=== PATIENT | male | born 1995 | race Caucasian/White ===

== ENCOUNTER 2025-05-08 17:42 | Inpatient (IN) | payer SELFPAY ==
--- NOTE | 2025-05-08 17:44 | ECG_ITS ---
[facility] Date: 2025-05-08 Pat Name: Kenneth Gtz Department: Room: Gender: Male Recruitment Specialist: : [id number] Requested By: Pauly Myers Order Number: [id number] Paul MD: ANDRES SEXTON Measurements Intervals [place] Rate: 114 P: 64 MI: 135 QRS: 79 QRSD: 88 T: 64 QT: 300 QTc: 414 Interpretive Statements SINUS TACHYCARDIA ABNORMAL RHYTHM ECG No previous ECG available for comparison Electronically Signed On 05-11-2025 23:13:59 CDT by ANDRES SEXTON [email or web address]
--- NOTE | 2025-05-08 17:44 | XRR_ITS ---
PROCEDURE INFORMATION: Exam: XR Right Knee Exam date and time: 05/08/2025 6:05 PM Age: 29 years old Clinical indication: Injury or trauma; Fall; Blunt trauma; Injury date: 05/08/2025; Injury details: PT stated he fell off skateboard; Patient states fell of his skateboard and is complaining of right knee pain. TECHNIQUE: Imaging protocol: Radiologic exam of the right knee. Views: 3 views. COMPARISON: No relevant prior studies available. FINDINGS: Bones/joints: Normal. Soft tissues: Normal. XR/XR knee RT 3V* [id number] IMPRESSION: No acute findings.
--- NOTE | 2025-05-08 17:45 | ED.C_ITS ---
HPI - Psych 2 General: Chief Complaint: Psychiatric Symptoms Stated Complaint: 96 - leg pain Time Seen by Provider: 05/08/25 17:44 History of Present Illness: 29-year-old man who presents emergency r oom with police with a 96-hour hold for suicidal ideation. Apparently fell off his skateboard and then he jumped in front of a car. He is crying when he arrives and complained of pain in his knee. Please says that when they got there and started to question him he tried to jump in front of a car. They said he said he was going to shoot himself Review of Systems 2 Narrative: Constitutional symptoms: Negative except as documented in HPI. Skin symptoms: Negative except as documented in HPI. Eye symptoms: Negative except as documented in HPI. ENMT symptoms: Negative except as documented in HPI. Respiratory symptoms: Negative except as documented in HPI. Cardiovascular symptoms: Negative except as documented in HPI. Gastrointestinal symptoms: Negative except as documented in HPI. Genitourinary symptoms: Negative except as documented in HPI. Musculoskeletal symptoms: Negative except as documented in HPI. Neurologic symptoms: Negative except as documented in HPI. Psychiatric symptoms: Negative except as documented in HPI. Endocrine symptoms: Negative except as documented in HPI. Physical Exam 2 Narrative: EXAM NARRATIVE: General: Alert, patient is somewhat agitated and crying. Skin: Warm, dry. Head: Normocephalic, atraumatic. Neck: Supple, trachea midline. Eye: Extraocular movements are intact. Ears, nose, mouth and throat: mucosa moist. Cardiovascular: Regular, Normal peripheral perfusion. Respiratory: Lungs are clear to auscultation, respirations are non-labored, breath sounds are equal, Symmetrical chest wall expansion. Gastrointestinal: Soft, Nontender, Non distended Musculoskeletal: Normal ROM, no deformity. Neurological: Alert and oriented, No focal neurological deficit observed. Psychiatric: Cooperative, patient is crying and complaining of knee pain. Course 2 Vital Signs: Vital signs: Vital Signs Temperature 97.9 F 05/08/25 18:00 Pulse Rate 79 05/08/25 18:00 Respiratory Rate 18 05/08/25 18:00 Blood Pressure 132/79 05/08/25 18:00 Pulse Oximetry 96 05/08/25 18:00 Oxygen Delivery Me thod Room Air 05/08/25 18:00 MDM - Psych Medical Decision Making Differential diagnosis: Patient with reported depression and suicidal ideation. concerns for infection, alcohol intoxication, cardiac issues or other medical problems prior to psychiatric admission. Workup: labwork, ekg ordered to evaluate the pathologies and to clear the patient medically prior to psychiatric admission EKG: Time 1840. Rate 114. Sinus tachycardia, No ST-T changes, no ectopy, normal PA & QRS intervals, This was reviewed and interpreted by myself the ER physician at 1845. X-ray of the knee: No fractures or dislocations. This was reviewed and interpreted by myself the emergency room physician. I also reviewed the radiology report. Lab Review: Laboratory results were reviewed and interpreted by myself the emergency room physician. - Medically cleared. - EKG shows no ischemic changes. - Blood alcohol level is negative, -Tylenol and salicylate levels are negative. - Urinalysis and drug screen are pending - No anemia. - BUN and creatinine are within normal limits. Consultation: I spoke with Dr. Israel who is on-call for psychiatry who agrees to admission pending beds open up. Admission orders are being placed for an ER hold Assessment and plan: Suicidal ideation Knee pain ?Trazodone and [place] -Admission to neuropsychiatric unit for continued evaluation and treatment. - All lab work was reviewed and interpreted personally by myself, the ER physician - Evaluation and treatment of this problem were appropriate in the emergency setting Lab Data 05/08/25 18:03 05/08/25 18:03 Radiology Impressions Knee X-Ray 05/08/25 17:44 IMPRESSION: No acute findings. ADDENDUM: 05/08/25 1846 No definite acute fracture, subluxation, dislocation. Laboratory Results WBC 19.30 10^3/uL (3.29-11.43) H 05/08/25 18:03 RBC 4.37 10^6/uL (3.85-5.65) 05/08/25 18:03 Hgb 13.70 g/dL (11.27-16.99) 05/08/25 18:03 Hct 40.1 % (37-53) 05/08/25 18:03 MCV 91.8 fl (82-101) 05/08/25 18:03 MCH 31.4 pg (27-33) 05/08/25 18:03 MCHC 34.2 g/dL (30-55) 05/08/25 18:03 RDW 13.0 % (12.1-15.1) 05/08/25 18:03 Plt Count 303 10^3/cmm (157-399) 05/08/25 18:03 MPV 8.9 fL (7.4-10.4) 05/08/25 18:03 Neut % (Auto) 81.0 % 05/08/25 18:03 Lymph % (Auto) 10.4 % 05/08/25 18:03 [place] % (Auto) 6.3 % 05/08/25 18:03 Eos % (Auto) 1.1 % 05/08/25 18:03 Baso % (Auto) 0.5 % 05/08/25 18:03 Neut # (Auto) 15.65 10^3/uL (1.8-7.7) H 05/08/25 18:03 Lymph # (Auto) 2.0 10^3/uL (0.8-4.8) 05/08/25 18:03 [place] # (Auto) 1.2 10^3/uL (0.2-0.9) H 05/08/25 18:03 Eos # (Auto) 0.2 10^3/uL (0.0-0.8) 05/08/25 18:03 Baso # (Auto) 0.1 10^3/uL (0.0-0.1) 05/08/25 18:03 Nucleated RBC % (auto) 0 % 05/08/25 18:03 Nucleated RBCs # 0.0 /100WBC 05/08/25 18:03 Sodium 140 mmol/L (136-145) 05/08/25 18:03 Potassium 4.5 mmol/L (3.5-5.1) 05/08/25 18:03 Chloride 102 mmol/L (98-107) 05/08/25 18:03 Carbon Dioxide 26 mmol/L (22-29) 05/08/25 18:03 Anion Gap 16.5 (5-19) 05/08/25 18:03 BUN 16 mg/dL (6-20) 05/08/25 18:03 Creatinine 0.9 mg/dL (0.7-1.2) 05/08/25 18:03 GFR Calculation 99.8 mL/min (90-130) 05/08/25 18:03 Glucose 119 mg/dL (65-115) H 05/08/25 18:03 Calculated Osmolality 292 mOsm/kg (285-295) 05/08/25 18:03 Calcium 9.3 mg/dL (8.5-10.5) 05/08/25 18:03 Total Bilirubin 0.2 mg/dL (0.15-1.2) 05/08/25 18:03 AST 23 U/L (0-40) 05/08/25 18:03 ALT 25 U/L (0-41) 05/08/25 18:03 Alkaline Phosphatase 80 U/L (40-130) 05/08/25 18:03 Total Protein 7.3 g/dL (6.6-8.7) 05/08/25 18:03 Albumin 4.4 g/dL (3.5-5.2) 05/08/25 18:03 Globulin 2.9 g/dL (1.3-4.6) 05/08/25 18:03 TSH 1.90 uIU/mL (0.27-4.20) 05/08/25 18:03 Salicylates < 0.3 mg/dL (3-10) L 05/08/25 18:03 Acetaminophen < 5.0 ug/mL (10-30) L 05/08/25 18:03 Ethyl Alcohol < 10 mg/dL (0-10) 05/08/25 18:03 All radiology interpretation(s) finalized by discharge Discharge Plan Discharge Patient Disposition: Admitted As Inpatient Clinical Impression: Depression, Suicidal ideation, Knee injury Condition: Stable Coding 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
[2025-05-08 17:50] VITALS: BMI 23.6
--- NOTE | 2025-05-08 17:59 | PC.NURSE ---
Pt was read his 96 hour hold rights at this time. Security present.
[2025-05-08 18:00] VITALS: BP 132/79; PULSE 79; RESP 18; TEMP 36.6; O2SAT 96
[2025-05-08 18:17] LABS: Hematocrit 40.1 % (37-53); Hemoglobin 13.70 g/dL (11.27-16.99); Mean Corpuscular HGB Conc 34.2 g/dL (30-55); Mean Corpuscular Hemoglobin 31.4 pg (27-33); Mean Corpuscular Volume 91.8 fl (82-101); Nucleated Red Blood Cells % 0 %; Platelet Count 303 10^3/cmm (157-399); Red Blood Count 4.37 10^6/uL (3.85-5.65); White Blood Count 19.30 10^3/uL (3.29-11.43)
[2025-05-08] MEDS: HYDROcodone-acetaminophen 10-325 mg Tablet 1 TAB PO (18:42)
[2025-05-08 19:06] LABS: Alanine Aminotransferase 25 U/L (0-41); Albumin Level 4.4 g/dL (3.5-5.2); Alkaline Phosphatase 80 U/L (40-130); Anion Gap 16.5 (5-19); Aspartate Amino Transferase 23 U/L (0-40); Blood Urea Nitrogen 16 mg/dL (6-20); Calcium 9.3 mg/dL (8.5-10.5); Carbon Dioxide 26 mmol/L (22-29); Chloride 102 mmol/L (98-107); Creatinine Clr Calc Pharmacy 122.3912; Globulin 2.9 g/dL (1.3-4.6); Glucose 119 mg/dL (65-115); Osmolality Calculated 292 mOsm/kg (285-295); Potassium 4.5 mmol/L (3.5-5.1); Sodium 140 mmol/L (136-145); Thyroid Stimulating Hormone 1.90 uIU/mL (0.27-4.20); Total Protein 7.3 g/dL (6.6-8.7)
[2025-05-08 19:07] LABS: Acetaminophen < 5.0 ug/mL (10-30); Alcohol Level < 10 mg/dL (0-10); Salicylate < 0.3 mg/dL (3-10)
--- NOTE | 2025-05-08 19:33 | XRR_ITS ---
PROCEDURE INFORMATION: Exam: XR Chest Exam date and time: 05/08/2025 8:09 PM Age: 29 years old Clinical indication: Other: Mental health eval for admit TECHNIQUE: Imaging protocol: Radiologic exam of the chest. Views: 1 view. COMPARISON: No relevant prior studies available. FINDINGS: Lungs: Unremarkable. No consolidation. Pleural spaces: Unremarkable. No pleural effusion. No pneumothorax. Heart/Mediastinum: Unremarkable. No cardiomegaly. Bones/joints: Unremarkable. XR/XR chest 1V portable [id number] IMPRESSION: No acute findings.
--- NOTE | 2025-05-08 20:10 | PC.NURSE ---
Pt. refused trazadone ordered by doctor because he wanted to take the medications in his bag. Pt. later said he would take them if he reads the package first.
[2025-05-08 20:34] LABS: Add Urine Microscopic? NO
[2025-05-08 20:37] LABS: Glucose Urine UA Negative (Normal); Nitrate Urine Negative (Negative); Specific Gravity, Urine 1.011 (1.005-1.030)
[2025-05-08 20:44] LABS: PCP Screen Urine Negative (Negative)
[2025-05-08 20:49] LABS: Respiratory Syncytial Virus Ce NEGATIVE (Negative); SARS-CoV-2 PCR NEGATIVE (Negative)
[2025-05-08 20:50] LABS: Charge for UA Resulting for Rev
[2025-05-09 00:16] VITALS: RESP 16
[2025-05-09 08:53] VITALS: BP 124/69; PULSE 109; O2SAT 97
[2025-05-09 13:40] VITALS: BP 126/70; PULSE 91; RESP 16; O2SAT 99
[2025-05-09 13:54] VITALS: BP 121/76; PULSE 111; RESP 20; TEMP 37; O2SAT 95
[2025-05-09 14:00] VITALS: BP 121/76; PULSE 111; RESP 20; TEMP 37; O2SAT 95
[2025-05-09] MEDS: neomycin-poly-bacitracin oint 28 gm 1 APPLIC TOPICAL (17:06)
[2025-05-09 19:58] VITALS: BP 107/64; PULSE 90; RESP 16; O2SAT 98
[2025-05-09] MEDS: benzocaine 20% 7 gm 1 APPLIC MUCOUS MEM (21:33)
[2025-05-10 05:38] VITALS: BP 116/69; PULSE 103; RESP 18; TEMP 37; O2SAT 99
--- NOTE | 2025-05-10 07:19 | P.NPUHP_ITS ---
Providers/Chief Complaint 2 Admitting Physician: Enrico Israel MD Chief Complaint: 96 - leg pain HPI NPU History of Present Illness Kenneth Gtz is a 29 year old male who presented to the emergency department with the following report: Chief Complaint: Psychiatric Symptoms Stated Complaint: 96 - leg pain Time Seen by Provider: 05/08/25 17:44 History of Present Illness: 29-year-old man who presents emergency room with police with a 96-hour hold for suicidal ideation. Apparently fell off his skateboard and then he jumped in front of a car. He is crying when he arrives and complained of pain in his knee. Please says that when they got there and started to question him he tried to jump in front of a car. They said he said he was going to shoot himself. He was admitted to the neuropsychiatric unit for definitive treatment of those issues. He is unknown to [facility] psychiatry through inpatient or outpatient services. He presented to the hospital with a negative BAL and a UDS positive for opiates. Patient is here on a 96-hour hold secondary to the police saying that he tried to jump in front of the vehicle and was endorsing being suicidal. He denies both those accusations and reports that they are lying. He reports they are from [facility] and that is what they do. He attempted to get this typewriter repairer to discharge him today. We discussed that if he maintains his current behavior and attitude that he would get out of here sooner than his 96- hour hold but that we need to identify the veracity of the claims against him and do our due diligence and not just take his word and discharge him. He is endorsing a history of seizures and reported that they are stress-induced and that is how he got on the Trileptal. He endorses wanting to leave as soon as possible and we discussed the risks, benefits and alternatives of the likely discharge on Monday once they have collateral information are able to get him an appointment. He endorses medications were effective and does not feel there is a need to change them right now. Meds NPU Home Medications ?Medication ?Instructions ?Recorded ?Confirmed ?Last Taken ?Type acyclovir 400 mg tablet 400 mg PO TID 05/09/2505/09 Unknown History oxcarbazepine 300 mg tablet 300 mg PO BID 05/09/2505/24 Unknown History propranolol 20 mg tablet See Rx Instructions .Route . COMPLEX 05/09/25 05/09/25 Unknown History trazodone 150 mg tablet 150 mg PO BEDTIME 05/09/25 1 Unknown History Allergies Allergy/AdvReac Type Severity Reaction Status Date / Time codeine Allergy Unknown Verified 05/08/25 20:09 Mental Status Exam 2 MSE Comments: This is a well-nourished well-developed white male in hospital scrubs with limited grooming but adequate eye contact. No abnormal movements except for psychomotor agitation, significant gait instability he reports from a accident on a scooter or longboard. Cooperative with exam in no acute distress. Speech was increased rate but normal volume. Mood described as fine, I do not need to be here, affect mostly euthymic. Thought process organized. Thought content: Patient denied suicidal or homicidal ideation, there were no delusions reported or noted, he denied any auditory or visual hallucinations. Attention and concentration appeared intact and memory appeared reliable but no more formally tested. He is alert and oriented x 3. Insight and judgment limited impulse control limited. Vitals/I&O/Wt Last Vital Signs Temp 98.6 F 05/10/25 05:38 Pulse 103 H 05/10/25 05:38 Resp 18 05/10/25 05:38 BP 116/69 05/10/25 05:38 Pulse Ox 99 05/10/25 05:38 O2 Del Method Room Air 05/10/25 05:38 Weight last 48 hrs Weight 72.575 kg Data NPU 05/08/25 18:03 05/08/25 18:03 A&P Assessment and plan 1. Depression: 2. Suicidal ideation: Plan: This is a 29-year-old white male with a long history of addiction and mental health issues, uknown to [facility] psychiatry who presents with a UDS positive for opiates but denying any current issues. 1. Continue current medication. Explore possible changes. 2. Continue every 15 minute checks for safety. 3. Encourage individual, group and milieu therapies. 4. Encourage sober living treatment after discharge at the highest level of care to which he is willing to commit. 5. Obtain collateral information. 6. Observe against the backdrop of 96-hour hold. PDMP PDMP Reviewed: Not Reviewed Involuntary Hold Information 2 Hold Status: Legal Status: 96 Hour Hold Date/Time Hold Expires: 05/14/25 @ 17:45 Attestations NPU 2 Medical Necessity Statement*: Inpatient hospitalization is medically necessary and the clinically appropriate intervention at this time. We will monitor medications and make changes as indicated. Patient will be in the hospital for over two midnights. Likely length of stay 7-10 days. Coding Level of Care Code Acute Code for [facility] Fwd Diagnoses Depression F32.A Suicidal ideation R45.851
[2025-05-10] MEDS: neomycin-poly-bacitracin oint 28 gm 1 APPLIC TOPICAL (10:22)
[2025-05-10 13:04] VITALS: BP 132/68; PULSE 104; RESP 16; TEMP 37.7; O2SAT 97
[2025-05-10] MEDS: benzocaine 20% 7 gm 1 APPLIC MUCOUS MEM (13:14)
[2025-05-10 19:39] VITALS: BP 126/70; PULSE 120; RESP 20; TEMP 37.9; O2SAT 90; BMI 25.7
[2025-05-11 06:00] VITALS: BP 123/66; PULSE 92; RESP 18; O2SAT 97
[2025-05-11 14:00] VITALS: BP 125/82; PULSE 110; RESP 16; TEMP 36.7; O2SAT 99
--- NOTE | 2025-05-11 14:42 | W.PM.NPUPNS ---
Subjective NPU Subjective: Patient presented today reporting that things are going well. He reports he is adjusted and excepted that he is here and denies any current problems. He has medication as prescribed and denied any problems or any need for any changes. We discussed work with social work team tomorrow to explore discharge with appropriate follow-up and getting some collateral information to understand what happened prior to admission. He denied any side effects to the medication. Mental Status Exam MSE Comments: This is a well-nourished well-developed white male in hospital scrubs with limited grooming but adequate eye contact. No abnormal movements except for psychomotor agitation, significant gait instability he reports from a accident on a scooter or longboard. Cooperative with exam in no acute distress. Speech was increased rate but normal volume. Mood described as feeling good, affect mostly euthymic. Thought process organized. Thought content: Patient denied suicidal or homicidal ideation, there were no delusions reported or noted, he denied any auditory or visual hallucinations. Attention and concentration appeared intact and memory appeared reliable but no more formally tested. He is alert and oriented x 3. Insight and judgment limited impulse control limited but improving. Vitals/I&O/Wt Last Vital Signs Temp 100.3 F H 05/10/25 19:39 Pulse 92 05/11/25 06:00 Resp 18 05/11/25 06:00 BP 123/66 05/11/25 06:00 Pulse Ox 97 05/11/25 06:00 O2 Del Method Room Air 05/11/25 06:00 05/10/25 05/11/25 05/11/25 22:59 06:59 14:59 Intake Total 240 / 480 Balance 240 / 480 Weight last 48 hrs Weight 79.038 kg Data NPU 05/08/25 18:03 05/08/25 18:03 A&P Assessment and plan 1. Depression: 2. Suicidal ideation: Plan: This is a 29-year-old white male with a long history of addiction and mental health issues, uknown to [facility] psychiatry who presents with a UDS positive for opiates but denying any current issues. 1. Continue current medication. Explore possible changes. 2. Continue every 15 minute checks for safety. 3. Encourage individual, group and milieu therapies. 4. Encourage sober living treatment after discharge at the highest level of care to which he is willing to commit. 5. Obtain collateral information. 6. Observe against the backdrop of 96-hour hold. PDMP PDMP Reviewed: Not Reviewed Involuntary Hold Information Hold Status: Legal Status: 96 Hour Hold Date/Time Hold Expires: 05/14/25 @ 17:45 Attestations NPU Medical Necessity Statement*: Inpatient hospitalization is medically necessary and the clinically appropriate intervention at this time. We will monitor medications and make changes as indicated. Likely length of stay 1-3 days. Coding Level of Care Code Acute Code for [facility] Fwd Diagnoses Depression F32.A Suicidal ideation R45.851
[2025-05-11] MEDS: neomycin-poly-bacitracin oint 28 gm 1 APPLIC TOPICAL (17:34)
[2025-05-11 19:50] VITALS: BP 128/74; PULSE 109; RESP 19; TEMP 36.9; O2SAT 96
[2025-05-12 06:00] VITALS: BP 122/70; PULSE 90; RESP 16; TEMP 36.3; O2SAT 98
[2025-05-12 12:41] VITALS: BP 122/70; PULSE 90; RESP 16; TEMP 36.3; O2SAT 98
== END 2025-05-12 14:16 | disposition home or self-care (01) | DRG 881 ==
LOC: ER 21:01 → NP 05-09 13:41
PROVIDERS: Admitting Provider Psychiatry & Neurology Psychiatry; Emergency Provider Emergency Medicine; Visit Provider Psychiatry & Neurology Psychiatry
DX: F32.A Depression, unspecified (principal); R45.851 Suicidal ideations; F11.90 Opioid use, unspecified, uncomplicated
CPT/HCPCS: 36415; 71045; 73562; 80053; 80306; 80307; 81003; 84443; 85025; 87637; 93005; 97150; 97165; 99285; J8499; J9999